=== PATIENT | male | born 1980 | race Hispanic/Latino ===

== ENCOUNTER 2017-05-26 09:32 | Emergency (ER) | payer OTHER ==
[2017-05-26 09:38] VITALS: BP 130/79; PULSE 72; TEMP 97; O2SAT 98; BMI 23.1
--- NOTE | 2017-05-26 10:01 | ED PDOC ---
Upper Extremity Pain/Injury Time Seen by Provider: 05/26/17 09:48 Chief Complaint (Nursing): Upper Extremity Problem/Injury Chief Complaint (Provider): Wrist pain History Per: Patient History/Exam Limitations: no limitations Onset/Duration Of Symptoms: Days (Yesterday night) Current Symptoms Are (Timing): Still Present Additional Complaint(s): Pt. was playing with his dog and accidentally slapped the couch. Started getting pain to the right wrist after. No numbness, tingles, weakness. Has pain on supinating the wrist. Pain radiates up to base of thumb. No injury elsewhere. Pain on wrist when making a fist. Past Medical History Reviewed: Nursing Documentation, Vital Signs Vital Signs: Last Vital Signs Temp 97 F L 05/26/17 09:37 Pulse 72 05/26/17 09:37 Resp BP 130/79 05/26/17 09:37 Pulse Ox 98 05/26/17 09:37 - Medical History PMH: No Chronic Diseases - Surgical History Other surgeries: cleft - Family History Family History: States: Unknown Family Hx - Social History Current smoker - smoking cessation education provided: No Alcohol: None Drugs: Denies - Home Medications Home Medications: Ambulatory Orders Medication Instructions Recorded Ibuprofen [Motrin] 600 mg PO TID 7 Days 05/26/17 - Allergies Allergies/Adverse Reactions: Allergies Allergy/AdvReac Type Severity Reaction Status Date / Time moxifloxacin [From Avelox] Allergy Severe ANAPHYLAXIS Verified 05/26/17 10:26 Review of Systems Constitutional: Negative for: Weakness ENT: Negative for: Nose Congestion Cardiovascular: Negative for: Chest Pain Respiratory: Negative for: Shortness of Breath Musculoskeletal: Positive for: Other (wrist pain). Negative for: Neck Pain, Arm Pain Neurological: Negative for: Weakness, Numbness Physical Exam - Reviewed Nursing Documentation Reviewed: Yes Vital Signs Reviewed: Yes - Physical Exam Appears: Positive for: Non-toxic, No Acute Distress Neck: Positive for: Normal, Painless ROM Cardiovascular/Chest: Positive for: Regular Rate, Rhythm Respiratory: Positive for: CNT, Normal Breath Sounds Pulses-Radial (R): 2+ (and ulnar 2+) Back: Positive for: Normal Inspection. Negative for: L CVA Tenderness, R CVA Tenderness Extremity: Positive for: Tenderness (ventral wrist diffuse right; has full rom; pain on supination; able to make fist with pain to the wrist), Other (no snuff box tenderness). Negative for: Deformity Neurologic/Psych: Positive for: Alert - ECG O2 Sat by Pulse Oximetry: 98 Pulse Ox Interpretation: Normal - Radiology X-Ray: Interpreted by Me, Viewed By Me X-Ray Interpretation: No Acute Disease - Progress ED Course And Treament: 1053: Stable. AAOx3. Pain improved. Frederick wrap. Fu with pcp. Disposition - Clinical Impression Clinical Impression: Wrist contusion - Patient ED Disposition Is Patient to be Admitted: No Counseled Patient/Family Regarding: Studies Performed, Diagnosis, Need For Followup, Rx Given - Disposition Referrals: [facility] [Outside] - 05/27/17 Disposition: Routine/Home Disposition Time: 10:54 Condition: STABLE Additional Instructions: Return if not better in 3 days. If pain persists in 7 days, get a repeat x-ray to evaluate for fractures that did not show up today. Prescriptions: Ibuprofen [Motrin] 600 mg PO TID 7 Days Instructions: Contusion in Adults (ED) Forms: [employer] (Faroese)
--- NOTE | 2017-05-27 10:19 | RAD ---
PROCEDURE: Right Hand Radiographs. HISTORY: pain COMPARISON: None. FINDINGS: BONES: Normal. No fracture or dislocation. No suspicious lytic or blastic change. JOINTS: Normal. No osteoarthritic changes. SOFT TISSUES: Unremarkable. OTHER FINDINGS: None. IMPRESSION: Normal right hand radiographs.
--- NOTE | 2017-05-27 10:22 | RAD ---
PROCEDURE: Right Wrist Radiographs. HISTORY: pain COMPARISON: None. FINDINGS: BONES: No acute fracture or dislocation identified. There is no suspicious blastic process throughout the carpal bones. Note is made of a small nonaggressive cyst at the navicular bone distally. No navicular fracture is appreciated. JOINTS: Normal. No dislocation. SOFT TISSUES: Normal. OTHER FINDINGS: None. IMPRESSION: Benign-appearing cysts noted in the navicular bone. No acute fracture or dislocation or suspicious blastic change right wrist.
== END 2017-05-26 11:02 | disposition home or self-care (01) ==
LOC: H.ER 09:32
DX: S60.211A Contusion of right wrist, initial encounter (principal); W22.8XXA Striking against or struck by other objects, initial encounter; Y92.008 Other place in unspecified non-institutional (private) residence as the place of occurrence of the external cause